=== PATIENT | female | born 1935 | race Caucasian/White ===

== ENCOUNTER 2017-01-06 10:24 | Inpatient (IN) | payer MEDICARE, OTHER ==
[2017-01-06] MEDS ORDERED: Sodium Chloride 0.9% 10 ML Syringe FLUSH PRN (10:37)
[2017-01-06] MEDS ORDERED: Sodium Chloride 0.9% 2.5 ML Syringe FLUSH PRN (10:37)
[2017-01-06] MEDS ORDERED: Aspirin 325 MG Tab PO ONE (10:48)
--- NOTE | 2017-01-06 10:56 | EDM.PDOC ---
ED HPI GENERAL MEDICAL PROBLEM - General Stated Complaint: SLURRED SPEECH,NUMBNESS Time Seen by Provider: 01/06/17 10:36 - History of Present Illness INITIAL COMMENTS - FREE TEXT/NARRATIVE: HISTORY AND PHYSICAL: History of present illness: The patient is a 81-year-old female with a history of hypertension who presents with difficulty speaking and thickened speech, and left-sided weakness that started at 10 PM last evening. Patient denies any recent trauma to her head and has no complaints of headache chest pain shortness of breath irregular heartbeat abdominal pain vomiting diarrhea fevers or chills. The patient said that he continued until she went to sleep and was persistent and continued even after she woke up this morning. She says that her extremity upper and lower weakness is improved and she has not had any falls. She says her speech is also improved but is not completely at baseline. She does say that her mouth is very dry. In the ER she has no systemic complaints of any pain or problems and has no difficulty swallowing. The patient does state she has not taken her antihypertensive medication today. She denies any neuro history and no history of TIAs or workup for such. Review of systems: As per history of present illness and below otherwise all systems reviewed and negative. Past medical history: As per history of present illness and as reviewed below otherwise noncontributory. Surgical history: As per history of present illness and as reviewed below otherwise noncontributory. Social history: No reported history of drug or alcohol abuse. Family history: As per history of present illness and as reviewed below otherwise noncontributory. Physical exam: Gen.: Well-developed thin female who is nontoxic and speaking clearly in the ED was slightly thickened speech and my evaluation. Vital signs of an reviewed by me. HEENT: Atraumatic, normocephalic, pupils reactive, negative for conjunctival pallor or scleral icterus, mucous membranes tacky, throat clear, neck supple, nontender, trachea midline. Lungs: Clear to auscultation, breath sounds equal bilaterally, chest nontender. Heart: S1S2, regular, negative for clicks, rubs, or JVD. Abdomen: Soft, nondistended, nontender. Negative for masses or hepatosplenomegaly. Negative for costovertebral tenderness. Pelvis: Stable nontender. Genitourinary: Deferred. Rectal: Deferred. Extremities: Atraumatic, negative for cords or calf pain. Neurovascular unremarkable. Full range of motion without defects or deficits Neuro: Awake, alert, oriented. Cranial nerves II through XII unremarkable. Cerebellum unremarkable. Motor and sensory unremarkable throughout. Exam nonfocal. Dorsi and plantar flexion is intact 5/5 inclusive of the great toe and site worker strengths are 5/5 bilaterally. NIHSS = 3, patient lost 1 point for drift in the left upper and lower extremity and one for the thickened speech Skin: There are no overt rashes or lesions no evidence of any soft tissue trauma and turgor is normal. Diagnostics: EKG CT scan of the head chest x-ray CBC CMP TSH INR troponin UA NIHSS per protocol Therapeutics: IV O2 monitor IV fluids aspirin Repeat NIHSS=2; patient has improvement of the drift of the left upper extremity with total resolution. She is repeat blood pressure was 179/80 and she says she did not take her morning medication but she is otherwise compliant. I will discuss this case with the hospitalist for admission here. 1204: Case was discussed with our hospitalist Dr. Ravi; he accepts the patient for inpatient admission for workup of these symptoms. I subsequently discussed all testing results with the patient and family at bedside and the patient is agreeable for admission. At this point we are currently awaiting a urine sample sent for UA and if we do not obtain this prior to the patient's disposition to the floor the nurse will give this information and reports what can be collected subsequent to her transfer to the floor. Dr. Ravi is also aware of her blood pressure Impression: Expressive aphasia and left-sided weakness, improving, TIA versus CVA; history of hypertension poorly controlled Definitive disposition and diagnosis as appropriate pending reevaluation and review of above. - Related Data Allergies Allergy/AdvReac Type Severity Reaction Status Date / Time No Known Allergies Allergy Verified 01/06/17 11:06 Home Meds: Home Meds Enalapril [Vasotec] 10 mg PO DAILY 01/06/17 [History] Levothyroxine [Synthroid] 88 mcg PO DAILY 01/06/17 [History] ED ROS GENERAL - Review of Systems Review Of Systems: ROS reveals no pertinent complaints other than HPI. ED EXAM, GENERAL - Physical Exam Exam: See Below (see dictation) Course - Vital Signs Last Recorded V/S: Last Vital Signs Temp 36.0 C 01/06/17 10:25 Pulse 73 01/06/17 10:25 Resp 18 01/06/17 10:25 BP 204/85 H 01/06/17 10:25 Pulse Ox 93 L 01/06/17 10:25 - Orders/Labs/Meds Orders: Active Orders 24 hr Category Date Time Status Cardiac Monitoring [RC] . DIRECTED Care 01/06/17 10:38 Active EKG Documentation Completion [RC] STAT Care 01/06/17 10:38 Active Oxygen Therapy, ED [RC] ASDIRECTED Care 01/06/17 10:38 Active Pulse Oximetry [RC] ASDIRECTED Care 01/06/17 10:38 Active Chest 1V Frontal [CR] Stat Exams 01/06/17 10:48 Taken Head wo Cont [CT] Stat Exams 01/06/17 10:38 Taken UA W/MICROSCOPIC [URIN] Stat Lab 01/06/17 11:58 Ordered Sodium Chloride 0.9% [Normal Saline] 500 ml Med 01/06/17 11:00 Active IV STAT Sodium Chloride 0.9% [Saline Flush] Med 01/06/17 10:37 Active 10 ml FLUSH ASDIRECTED PRN Sodium Chloride 0.9% [Saline Flush] Med 01/06/17 10:37 Active 2.5 ml FLUSH ASDIRECTED PRN Saline Lock Insert [OM.PC] Stat Oth 01/06/17 10:37 Ordered Medication Orders Sodium Chloride (Normal Saline) 500 mls @ 999 mls/hr IV STAT CECILIA Last Admin: 01/06/17 11:53 Dose: 999 mls/hr Sodium Chloride (Saline Flush) 10 ml FLUSH ASDIRECTED PRN PRN Reason: Keep Vein Open Sodium Chloride (Saline Flush) 2.5 ml FLUSH ASDIRECTED PRN PRN Reason: Keep Vein Open Labs: Laboratory Tests 01/06/17 01/06/17 01/06/17 Range/Units 10:35 10:35 10:35 WBC 7.31 (4.0-11.0) K/uL RBC 5.37 (4.30-5.90) M/uL Hgb 17.0 H (12.0-16.0) g/dL Hct 50.7 H (36.0-46.0) % MCV 94.4 (80.0-98.0) fL MCH 31.7 (27.0-32.0) pg MCHC 33.5 (31.0-37.0) g/dL RDW Std Deviation 50.4 (28.0-62.0) fl RDW Coeff of Norman 15 (11.0-15.0) % Plt Count 177 (150-400) K/uL MPV 9.80 (7.40-12.00) fL Neut % (Auto) 60.3 (48.0-80.0) % Lymph % (Auto) 29.0 (16.0-40.0) % [place] % (Auto) 7.0 (0.0-15.0) % Eos % (Auto) 2.7 (0.0-7.0) % Baso % (Auto) 1.0 (0.0-1.5) % Neut # (Auto) 4.4 (1.4-5.7) K/uL Lymph # (Auto) 2.1 (0.6-2.4) K/uL [place] # (Auto) 0.5 (0.0-0.8) K/uL Eos # (Auto) 0.2 (0.0-0.7) K/uL Baso # (Auto) 0.1 (0.0-0.1) K/uL Nucleated RBC % 0.0 /100WBC Nucleated RBCs # 0 K/uL INR 1.04 (0.86-1.11) Sodium 138 (136-146) mmol/L Potassium 4.6 (3.5-5.1) mmol/L Chloride 105 (98-110) mmol/L Carbon Dioxide 25 (21-31) mmol/L BUN 18 (6.0-23.0) mg/dL Creatinine 0.9 (0.6-1.5) mg/dL Est Cr Clr Drug Dosing TNP Estimated GFR (MDRD) > 60.0 ml/min Glucose 96 (60-110) mg/dL Calcium 9.4 (8.8-10.8) mg/dL Total Bilirubin 0.9 (0.1-1.5) mg/dL AST 20 (5-40) IU/L ALT 12 (8-54) IU/L Alkaline Phosphatase 77 (40-150) Troponin I < 0.10 (0.0-0.29) NG/ML Total Protein 8.1 H (6.0-8.0) g/dL Albumin 4.0 (3.4-4.8) g/dL Globulin 4.1 H (2.0-3.5) g/dL Albumin/Globulin Ratio 1.0 L (1.3-2.8) TSH 3rd Generation 0.98 (0.47-5.0) uIU/mL Meds: Medications Generic Name Dose Route Start Last Admin Trade Name Freq PRN Reason Stop Dose Admin Sodium Chloride 500 mls @ 999 mls/hr 01/06/17 11:00 01/06/17 11:53 Normal Saline IV 999 mls/hr STAT CECILIA Administration Sodium Chloride 10 ml 01/06/17 10:37 Saline Flush FLUSH ASDIRECTED PRN Keep Vein Open Sodium Chloride 2.5 ml 01/06/17 10:37 Saline Flush FLUSH ASDIRECTED PRN Keep Vein Open Discontinued Medications Generic Name Dose Route Start Last Admin Trade Name Freq PRN Reason Stop Dose Admin Aspirin 325 mg 01/06/17 10:48 01/06/17 10:54 Aspirin PO 01/06/17 10:49 325 mg ONETIME ONE Administration Departure - Departure Time of Disposition: 12:11 Disposition: Admitted As Inpatient 68 Condition: Good Clinical Impression: TIA (transient ischemic attack) Qualifiers: Transient cerebral ischemia type: unspecified Qualified Code(s): G45.9 - Transient cerebral ischemic attack, unspecified Hypertension Qualifiers: Hypertension type: unspecified Qualified Code(s): I10 - Essential (primary) hypertension - Discharge Information Referrals: PCP,None [Primary Care Provider] - - My Orders Last 24 Hours: My Active Orders 01/06/17 10:37 Sodium Chloride 0.9% [Saline Flush] 10 ml FLUSH ASDIRECTED PRN Sodium Chloride 0.9% [Saline Flush] 2.5 ml FLUSH ASDIRECTED PRN Saline Lock Insert [OM.PC] Stat 01/06/17 10:38 Cardiac Monitoring [RC] . DIRECTED EKG Documentation Completion [RC] STAT Oxygen Therapy, ED [RC] ASDIRECTED Pulse Oximetry [RC] ASDIRECTED Head wo Cont [CT] Stat 01/06/17 10:48 Chest 1V Frontal [CR] Stat 01/06/17 11:00 Sodium Chloride 0.9% [Normal Saline] 500 ml IV STAT 01/06/17 11:58 UA W/MICROSCOPIC [URIN] Stat - Assessment/Plan Last 24 Hours: My Active Orders 01/06/17 10:37 Sodium Chloride 0.9% [Saline Flush] 10 ml FLUSH ASDIRECTED PRN Sodium Chloride 0.9% [Saline Flush] 2.5 ml FLUSH ASDIRECTED PRN Saline Lock Insert [OM.PC] Stat 01/06/17 10:38 Cardiac Monitoring [RC] . DIRECTED EKG Documentation Completion [RC] STAT Oxygen Therapy, ED [RC] ASDIRECTED Pulse Oximetry [RC] ASDIRECTED Head wo Cont [CT] Stat 01/06/17 10:48 Chest 1V Frontal [CR] Stat 01/06/17 11:00 Sodium Chloride 0.9% [Normal Saline] 500 ml IV STAT 01/06/17 11:58 UA W/MICROSCOPIC [URIN] Stat
[2017-01-06 11:00] LABS: CHLORIDE,CL 105 mmol/L (98-110); SODIUM,NA 138 mmol/L (136-146)
[2017-01-06] MEDS ORDERED: Sodium Chloride 0.9% 500 ML IV SCH (11:00)
--- NOTE | 2017-01-06 13:14 | PCM.HP ---
H&P History of Present Illness - General Date of Service: 01/06/17 Admit Problem/Dx: Admission Diagnosis/Problem Admission Diagnosis/Problem TIA, Transient ischemic attack Source of Information: Patient, Old Records, Provider - History of Present Illness Initial Comments - Free Text/Narative: She presented today with complaint of onset last night of trouble speaking, trouble walking and left sided weakness. She has improved. CT head in the ED did not show any acute changes. - Related Data Allergies/Adverse Reactions: Allergies Allergy/AdvReac Type Severity Reaction Status Date / Time No Known Allergies Allergy Verified 01/06/17 11:06 Home Medications: Home Meds Enalapril [Vasotec] 10 mg PO DAILY 01/06/17 [History] Levothyroxine [Synthroid] 88 mcg PO DAILY 01/06/17 [History] Past Medical History Cardiovascular History: Reports: Hypertension. 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 Denies: Diabetes, Type II Immunologic History: Denies: Immunosuppression - Infectious Disease History Infectious Disease History: Reports: Chicken Pox, Measles, Mumps - Past Surgical History GI Surgical History: Reports: Appendectomy, Cholecystectomy Female Surgical History: Reports: Section Social & Family History - Family History Family Medical History: Noncontributory - Tobacco Use Smoking Status *Q: Current Every Day Smoker Years of Tobacco use: 50 Packs/Tins Daily: 0.5 - Alcohol Use Alcohol Use Comment: she drinks one or two beers per day. - Recreational Drug Use Recreational Drug Use: No H&P Review of Systems - Review of Systems: Review Of Systems: See Below General: Denies: Fever, Chills HEENT: Denies: Dysphasia, Sore Throat, Visual Changes Pulmonary: Denies: Shortness of Breath, Cough Cardiovascular: Denies: Chest Pain, Palpitations Gastrointestinal: Denies: Abdominal Pain, Black Stool, Bloody Stool, Hematemesis , Hematochezia Genitourinary: Denies: Dysuria, Frequency, Burning, Hematuria Neurological: Denies: Seizure Exam - Exam Exam: See Below - Vital Signs Vital Signs: Last Vital Signs Temp 96.8 F 01/06/17 10:25 Pulse 73 01/06/17 10:25 Resp 18 01/06/17 10:25 BP 204/85 H 01/06/17 10:25 Pulse Ox 93 L 01/06/17 11:42 Weight: 58.1 kg - Exam General: Alert, Oriented, Cooperative HEENT: EOMI Neck: Supple, Trachea Midline Lungs: Clear to Auscultation, Normal Respiratory Effort Cardiovascular: Regular Rate, Regular Rhythm GI/Abdominal Exam: Soft, Non-Tender (Female) Exam: Deferred Rectal (Female) Exam: Deferred Extremities: No Pedal Edema, Other (slight fingernail clubbing) Physical Exam Comments:: alert no hemineglect no babinski feet noted EOMs normal visual jimenez normal to confrontation testing speech: slightly slow; seems to be focusing to try to speak very subtle left facial droop when smiling normal finger to nose slight weakness left hand layaway clerk slight weakness in left hip flexion and left knee flexion very unstable gait seems to have normal mentation - Patient Data Result Diagrams: 01/06/17 10:35 01/06/17 10:35 *Q Meaningful Use (ADM) - VTE *Q VTE Criteria *Q: - Stroke *Q Stroke Criteria *Q: - AMI *Q AMI Criteria *Q: - Problem List (1) Acute ischemic stroke SNOMED Code(s): 621383361 ICD Code: I63.9 - CEREBRAL INFARCTION, UNSPECIFIED Status: Acute Current Visit: Yes (2) Hypertension SNOMED Code(s): 93983048 ICD Code: I10 - ESSENTIAL (PRIMARY) HYPERTENSION Status: Acute Current Visit: Yes Qualifiers: Hypertension type: unspecified Qualified Code(s): I10 - Essential (primary ) hypertension (3) Tobacco dependence due to cigarettes SNOMED Code(s): 35958400018474023 ICD Code: F17.210 - NICOTINE DEPENDENCE, CIGARETTES, UNCOMPLICATED Status: Acute Current Visit: Yes Problem List Initiated/Reviewed/Updated: Yes Orders Last 24hrs: Medication Orders Sodium Chloride (Normal Saline) 500 mls @ 999 mls/hr IV STAT CECILIA Last Admin: 01/06/17 11:53 Dose: 999 mls/hr Sodium Chloride (Saline Flush) 10 ml FLUSH ASDIRECTED PRN PRN Reason: Keep Vein Open Sodium Chloride (Saline Flush) 2.5 ml FLUSH ASDIRECTED PRN PRN Reason: Keep Vein Open Assessment/Plan Comment:: see orders admit telemetry Jose Ravi MD
[2017-01-06] MEDS ORDERED: Acetaminophen 325 MG Tab PO PRN (13:15)
[2017-01-06] MEDS ORDERED: Temazepam 15 MG Cap PO PRN (13:15)
[2017-01-06] MEDS ORDERED: Pneumococcal Polyvalent-23 Vaccine 0.5 ML SDV SUBCUT ONE (14:08)
[2017-01-06] MEDS: Enoxaparin 40 MG/0.4 ML Syringe SUBCUT SCH (16:15)
[2017-01-07 06:24] LABS: CHLORIDE,CL 106 mmol/L (98-110); SODIUM,NA 136 mmol/L (136-146)
[2017-01-07] MEDS: Levothyroxine 88 MCG Tab PO SCH (06:35)
[2017-01-07] MEDS ORDERED: Aspirin 81 MG Tab.Chew PO SCH (09:00)
[2017-01-07] MEDS ORDERED: atorvaSTATin 40 MG Tab PO ONE (09:11)
--- NOTE | 2017-01-07 10:18 | PCM.PN ---
- General Info Date of Service: 01/07/17 Subjective Update: States she feels much better. Denies having any difficulty with speech. Shes able to talk without any issues. Says her left sided weakness has resolved as well. She has no complaints. Denies headache, blurry vision, no numbness or tingling, chest pain, palpitations - Review of Systems General: Reports: Other (see HPI) - Patient Data Vitals - Most Recent: Last Vital Signs Temp 36.6 C 01/07/17 07:55 Pulse 50 L 01/07/17 07:55 Resp 16 01/07/17 07:55 BP 118/62 01/07/17 07:55 Pulse Ox 94 L 01/07/17 07:55 Weight - Most Recent: 58.1 kg I&O - Last 24 Hours: Intake & Output 01/06/17 01/07/17 01/07/17 22:59 06:59 14:59 Intake Total 500 250 Output Total 400 750 Balance 100 -500 Lab Results Last 24 Hours: Laboratory Results - last 24 hr 01/07/17 01/07/17 Range/Units 05:25 05:25 WBC 6.52 (4.0-11.0) K/uL RBC 4.81 (4.30-5.90) M/uL Hgb 14.8 (12.0-16.0) g/dL Hct 44.8 (36.0-46.0) % MCV 93.1 (80.0-98.0) fL MCH 30.8 (27.0-32.0) pg MCHC 33.0 (31.0-37.0) g/dL RDW Std Deviation 49.6 (28.0-62.0) fl RDW Coeff of Norman 15 (11.0-15.0) % Plt Count 177 (150-400) K/uL MPV 10.20 (7.40-12.00) fL Neut % (Auto) 43.6 L (48.0-80.0) % Lymph % (Auto) 44.3 H (16.0-40.0) % [place] % (Auto) 6.9 (0.0-15.0) % Eos % (Auto) 4.1 (0.0-7.0) % Baso % (Auto) 1.1 (0.0-1.5) % Neut # (Auto) 2.8 (1.4-5.7) K/uL Lymph # (Auto) 2.9 H (0.6-2.4) K/uL [place] # (Auto) 0.5 (0.0-0.8) K/uL Eos # (Auto) 0.3 (0.0-0.7) K/uL Baso # (Auto) 0.1 (0.0-0.1) K/uL Nucleated RBC % 0.0 /100WBC Nucleated RBCs # 0 K/uL Sodium 136 (136-146) mmol/L Potassium 4.0 (3.5-5.1) mmol/L Chloride 106 (98-110) mmol/L Carbon Dioxide 22 (21-31) mmol/L BUN 13 (6.0-23.0) mg/dL Creatinine 0.8 (0.6-1.5) mg/dL Est Cr Clr Drug Dosing 47.17 mL/min Estimated GFR (MDRD) > 60.0 ml/min Glucose 81 (60-110) mg/dL Calcium 8.5 L (8.8-10.8) mg/dL Magnesium 1.5 (1.5-2.3) mEq/L Med Orders - Current: Current Medications Acetaminophen (Tylenol) 650 mg PO Q4H PRN PRN Reason: Pain (Mild 1-3)/fever Aspirin (Aspirin) 324 mg PO DAILY [facility] Last Admin: 01/07/17 09:45 Dose: 324 mg Enalapril Maleate (Vasotec) 10 mg PO DAILY [facility] Last Admin: 01/07/17 09:47 Dose: Not Given Enoxaparin Sodium (Lovenox) 40 mg SUBCUT Q24H [facility] Last Admin: 01/06/17 16:15 Dose: 40 mg Sodium Chloride (Normal Saline) 500 mls @ 999 mls/hr IV STAT [facility] Last Admin: 01/06/17 11:53 Dose: 999 mls/hr Levothyroxine Sodium (Synthroid) 88 mcg PO ACBREAKFAST [facility] Last Admin: 01/07/17 06:35 Dose: 88 mcg Sodium Chloride (Saline Flush) 10 ml FLUSH ASDIRECTED PRN PRN Reason: Keep Vein Open Sodium Chloride (Saline Flush) 2.5 ml FLUSH ASDIRECTED PRN PRN Reason: Keep Vein Open Temazepam (Restoril) 15 mg PO BEDTIME PRN PRN Reason: Sleep Discontinued Medications Aspirin (Aspirin) 325 mg PO ONETIME ONE Stop: 01/06/17 10:49 Last Admin: 01/06/17 10:54 Dose: 325 mg Atorvastatin Calcium (Lipitor) 80 mg PO DAILY ONE Stop: 01/07/17 09:12 Last Admin: 01/07/17 09:46 Dose: 80 mg Pneumococcal Polyvalent Vaccine (Pneumovax 23) 0.5 ml SUBCUT .ONCE ONE Stop: 01/06/17 14:09 - Exam General: Alert, Oriented Neck: Supple Lungs: Clear to Auscultation, Normal Respiratory Effort Cardiovascular: Regular Rate, Regular Rhythm GI/Abdominal Exam: Normal Bowel Sounds, Soft Back Exam: Normal Inspection Extremities: Normal Inspection, Normal Range of Motion, Non-Tender, No Pedal Edema, Normal Capillary Refill Peripheral Pulses: 2+: Dorsalis Pedis (L), Dorsalis Pedis (R) Skin: Warm, Intact Neurological: No New Focal Deficit, Normal Speech, Normal Tone, Strength Equal Bilateral, Reflexes Equal Bilateral, Other (CN 2-12 intact) - Problem List Review Problem List Initiated/Reviewed/Updated: Yes - Plan Plan:: A: #1. TIA - symptoms resolved #2. Hypertension #3. Hypothyroidism P: #1. MRI/MRA pending for tomorrow. #2. Lipitor 80mg PO daily #3. Continue telemetry #4. Anticipate discharge tomorrow.
[2017-01-07] MEDS: Enoxaparin 40 MG/0.4 ML Syringe SUBCUT SCH (15:37)
[2017-01-08] MEDS ORDERED: Aspirin 325 MG Tab.EC PO SCH (09:00)
[2017-01-08] MEDS ORDERED: atorvaSTATin 40 MG Tab PO SCH (09:15)
[2017-01-08] MEDS ORDERED: Gadobenate Dimeglumine 529 MG/ML 20 ML SDV IVPUSH STA (09:57)
[2017-01-08] MEDS: Levothyroxine 88 MCG Tab PO SCH (11:37)
--- NOTE | 2017-01-08 11:41 | CT ---
EXAM DATE: 01/06/17 PATIENT'S AGE: 81 Patient: HEAVENLY PRADHAN Facility: [place], [place] Site . Site : 1935 Study: CT Head STROKE PROTOCOL WO CONT [id number]/11/2017 10:41:17 AM Ordering Physician: Herber Khan Final Report: INDICATION: STROKE CODE CT SCAN HEAD WITHOUT CONTRAST TECHNIQUE: Direct axial non-contrast images of the head from foramen magnum to vertex are provided. FINDINGS: Axial images of the brain demonstrate a normal for age appearance of the ventricles, sulci and basal cistern. There is some mild diffuse atrophy. There is some patchy periventricular low attenuation suggesting small vessel ischemic changes. There is no evidence of intracranial hemorrhage, infarct, mass or mass effect. Arita-white differentiation is normal throughout. Visualized mastoid air cells and middle ear cavities are clear. The visualized paranasal sinuses are clear. The orbits are symmetric. CONCLUSION: No acute findings on unenhanced head CT. Results discussed with Dr. Craven at 1045 06 January 2017. Dictated by: Edy Martinez MD @ 01/06/2017 10:45:53 (Electronic Signature) Report Signed by Proxy. [facility] HOSPITALLeelee
--- NOTE | 2017-01-08 12:14 | CR ---
EXAM DATE: 01/06/17 PATIENT'S AGE: 81 Patient: HEAVENLY PRADHAN Facility: [place], [place] Site . Site : 1935 Study: XRay Chest [id number]/11/2017 11:34:58 AM Ordering Physician: Herber Khan Final Report: Indication: Pain. Shortness of breath. Technique: One view lordotic. Impression: Mild cardiomegaly. Ectatic aorta. No focal airspace opacity. Pulmonary vascularity is within normal limits. No pneumothorax or effusion. Dictated by Edy Martinez MD @ Jan 06 2017 11:48AM (Electronic Signature) Report Signed by Proxy. EMILY
--- NOTE | 2017-01-08 14:09 | MR ---
EXAMINATION: MRI of the brain with and without contrast, MRA head and neck without contrast. HISTORY: Stroke COMPARISON: CT head dated 01/06/2017 TECHNIQUE: Multiplanar and multisequence imaging obtained through the brain before and following the administration of 11 mL of MultiHance. [id number] imaging obtained through the head and neck with MIP reconstructions. FINDINGS: There is diffusion restriction within the right aspect of the sarah consistent with an infarct. Other hodges no abnormal diffusion restriction is noted. There is no abnormal enhancement. Mild generalized a trophy and prominence of the ventricles. Periventricular and subcortical white matter FLAIR signal ab normalities are noted. The cerebellopontine angles are normal. Cerebellum is normal. The craniocervic al junction is normal. Midline structures and pituitary gland otherwise appear normal. There is loss of the flow void within the left internal carotid artery. The orbits and globes are symmetric. Parana ludwig sinuses and mastoid air cells are clear. Calvarium is normal in signal. There is a normal three-vessel origin of the aortic arch. The common carotid arteries are grossly unr emarkable. The left vertebral artery is notably dominant. The left internal carotid artery is complet melly occluded. The right internal carotid artery appears grossly patent. There is likely mild atheromatous narrowing within the proximal left middle cerebral artery. The ante rior right middle and posterior cerebral arteries appear normal. The basilar artery is normal. Anteri or and left posterior communicating artery appear normal. The right posterior communicating artery is diminutive. No evidence of an aneurysm. IMPRESSION: 1. Small right pontine infarct. 2. Complete occlusion of the left internal carotid artery. 3. Mild generalized atrophy and moderate small vessel ischemic changes.
--- NOTE | 2017-01-08 14:49 | PCM.DCSUM1 ---
Discharge Summary - Hospital Course Free Text/Narrative:: Admission Date: 01/06/2017 Discharge Date: 01/08/2017 Admission Diagnosis: #1. TIA - slurred speech and left upper extremity weakness #2. Hypertension #3. History of Hypothyroidism #4. Tobacco abuse Discharge Diagnosis: #1. Small right pontine infarct #2. Total occlusion of left internal carotid #3. Slurred speech/left sided weakness that has resolved #4. History of HTN, Tobacco abuse, hypothyroidism Hospital course: 81F with the above past medical history presented to the ER with slurred speech and left arm weakness. CT head in the ER was unremarkable. She was then admitted for a stroke workup. The next morning when I evaluated her, the patient was able to speak in full sentences and seemed to have returned back to her baseline. She exhibited no signs of left sided weakness. Permissive hypertension was allowed. Her home medication enalapril was held. The patient then had an MRI/MRA of the head/neck which revealed a small right pontine infarct along with complete occlusion of the left internal carotid. Given the infarct was on the opposite side, the total occlusion of the left carotid is likely not the reason for her symptoms. However, I did strongly advise her that she should see a neurologist for an opinion. The patient was then discharged and advised to follow up with her PCP and a neurologist. She was advised to return to seek medical attention if she experiences any similar symptoms again or dizziness, loss of consciousness, numbness, tingling. Discharge medications: #1. Aspirin 325mg PO Daily #2. Lipitor 80mg PO daily continue home medications without changes - Discharge Data Discharge Date: 01/08/17 Discharge Disposition: Home, Self-Care 01 Condition: Fair - Patient Summary/Data Consults: Consultations 01/08/17 09:07 PT Evaluation and Treatment [CONS] Routine - Patient Instructions Diet: Regular Diet as Tolerated Activity: As Tolerated Other/Special Instructions: return if you experience numbness, tingling, weakness, slurring of speech, blurry vision - Discharge Plan Prescriptions/Med Rec: Aspirin 325 mg PO DAILY 30 Days #30 tablet atorvaSTATin [Lipitor] 80 mg PO DAILY 14 Days #14 tablet Home Medications: Home Meds Enalapril [Vasotec] 10 mg PO DAILY 01/06/17 [History] Levothyroxine [Synthroid] 88 mcg PO ACBREAKFAST 01/06/17 [History] Aspirin 325 mg PO DAILY 30 Days #30 tablet 01/08/17 [Rx] atorvaSTATin [Lipitor] 80 mg PO DAILY 14 Days #14 tablet 01/08/17 [Rx] Patient Handouts: Transient Ischemic Attack, [id number], Atorvastatin tablets Referrals: Jazmin Covington MD [Physician] - 03/08/17 3:00 pm PCP,None [Primary Care Provider] - - Discharge Summary/Plan Comment DC Time >30 min.: No Discharge Summary/Plan Comment: Admission Date: 01/06/2017 Discharge Date: 01/08/2017 Admission Diagnosis: #1. TIA - slurred speech and left upper extremity weakness #2. Hypertension #3. History of Hypothyroidism #4. Tobacco abuse Discharge Diagnosis: #1. Small right pontine infarct #2. Total occlusion of left internal carotid #3. Slurred speech/left sided weakness that has resolved #4. History of HTN, Tobacco abuse, hypothyroidism Hospital course: 81F with the above past medical history presented to the ER with slurred speech and left arm weakness. CT head in the ER was unremarkable. She was then admitted for a stroke workup. The next morning when I evaluated her, the patient was able to speak in full sentences and seemed to have returned back to her baseline. She exhibited no signs of left sided weakness. Permissive hypertension was allowed. Her home medication enalapril was held. The patient then had an MRI/MRA of the head/neck which revealed a small right pontine infarct along with complete occlusion of the left internal carotid. Given the infarct was on the opposite side, the total occlusion of the left carotid is likely not the reason for her symptoms. However, I did strongly advise her that she should see a neurologist for an opinion. The patient was then discharged and advised to follow up with her PCP and a neurologist. She was advised to return to seek medical attention if she experiences any similar symptoms again or dizziness, loss of consciousness, numbness, tingling. Discharge medications: #1. Aspirin 325mg PO Daily #2. Lipitor 80mg PO daily continue home medications without changes - Patient Data Vitals - Most Recent: Last Vital Signs Temp 36.3 C 01/08/17 13:00 Pulse 63 01/08/17 13:00 Resp 16 01/08/17 13:00 BP 145/66 H 01/08/17 13:00 Pulse Ox 94 L 01/08/17 13:00 Weight - Most Recent: 58.1 kg I&O - Last 24 hours: Intake & Output 01/07/17 01/08/17 01/08/17 22:59 06:59 14:59 Intake Total 1150 700 Output Total 1000 650 Balance 150 50 Lab Results - Last 24 hrs: Laboratory Results - last 24 hr 01/08/17 Range/Units 04:50 Triglycerides 75 (10-190) mg/dL Cholesterol 172 (131-240) mg/dL LDL Cholesterol, Calc 126 (60-180) mg/dL VLDL Cholesterol 15 (5-55) mg/dL HDL Cholesterol 31 L (40-80) mg/dL Cholesterol/HDL Ratio 5.5 (3.3-6.0) Med Orders - Current: Current Medications Acetaminophen (Tylenol) 650 mg PO Q4H PRN PRN Reason: Pain (Mild 1-3)/fever Aspirin (Ecotrin) 325 mg PO DAILY [facility] Last Admin: 01/08/17 11:37 Dose: 325 mg Atorvastatin Calcium (Lipitor) 80 mg PO DAILY [facility] Last Admin: 01/08/17 11:37 Dose: 80 mg Enalapril Maleate (Vasotec) 10 mg PO DAILY [facility] Last Admin: 01/08/17 11:50 Dose: Not Given Enoxaparin Sodium (Lovenox) 40 mg SUBCUT Q24H [facility] Last Admin: 01/07/17 15:37 Dose: 40 mg Sodium Chloride (Normal Saline) 500 mls @ 999 mls/hr IV STAT [facility] Last Admin: 01/06/17 11:53 Dose: 999 mls/hr Levothyroxine Sodium (Synthroid) 88 mcg PO ACBREAKFAST [facility] Last Admin: 01/08/17 11:37 Dose: 88 mcg Sodium Chloride (Saline Flush) 10 ml FLUSH ASDIRECTED PRN PRN Reason: Keep Vein Open Sodium Chloride (Saline Flush) 2.5 ml FLUSH ASDIRECTED PRN PRN Reason: Keep Vein Open Temazepam (Restoril) 15 mg PO BEDTIME PRN PRN Reason: Sleep Discontinued Medications Aspirin (Aspirin) 325 mg PO ONETIME ONE Stop: 01/06/17 10:49 Last Admin: 01/06/17 10:54 Dose: 325 mg Aspirin (Aspirin) 324 mg PO DAILY [facility] Last Admin: 01/07/17 09:45 Dose: 324 mg Atorvastatin Calcium (Lipitor) 80 mg PO DAILY ONE Stop: 01/07/17 09:12 Last Admin: 01/07/17 09:46 Dose: 80 mg Gadobenate Dimeglumine (Multihance) 20 ml IVPUSH ONETIME STA Stop: 01/08/17 09:58 Last Admin: 01/08/17 09:59 Dose: 11 ml Pneumococcal Polyvalent Vaccine (Pneumovax 23) 0.5 ml SUBCUT .ONCE ONE Stop: 01/06/17 14:09 *Q Meaningful Use (DIS) - VTE *Q VTE Criteria *Q: - Stroke *Q Stroke Criteria *Q: - AMI *Q AMI Criteria *Q:
--- NOTE | 2017-01-11 14:46 | ECHO ---
EXAM DATE: 01/06/17 PATIENT'S AGE: 81 The echocardiogram report can be seen in this patient's EMR (Electronic Medical Record) in the Reports Section. The report has also been scanned into PACs. EMILY
== END 2017-01-08 16:00 | disposition home or self-care (01) | DRG 66 ==
LOC: MW.ED 10:24 → MW.MS 12:11
PROVIDERS: ADMIT Family Medicine; ATTEND Family Medicine
DX: G45.9 Transient cerebral ischemic attack, unspecified (principal); I10 Essential (primary) hypertension; I63.9 Cerebral infarction, unspecified; I65.22 Occlusion and stenosis of left carotid artery; E03.9 Hypothyroidism, unspecified; F17.210 Nicotine dependence, cigarettes, uncomplicated; Z79.899 Other long term (current) drug therapy
CPT/HCPCS: 36415; 70450; 71010; 80053; 81001; 84443; 84484; 85025; 85610; 93005; 99285; A9270; J7040; 70544; 70544-26; 70547; 70547-26; 70553; 70553-26; 80048; 80061; 83735; 93307; 97161-GP; 99283; A9577; J1650